=== PATIENT | male | born 1965 | race Caucasian/White ===

== ENCOUNTER 2019-03-14 05:49 | Day surgery (SDC) | payer OTHER ==
[2019-03-14] MEDS: BUPIVACAINE 0.5% (SDV) 30 ML INJ (07:40)
[2019-03-14] MEDS: LIDOCAINE 1% (MPF) 30 ML INJ (07:40)
[2019-03-14] MEDS ORDERED: PROPOFOL 20 ML ×3 (07:44→07:56)
[2019-03-14] MEDS ORDERED: FENTAnyl 50 MCG/ML VIAL (07:45)
[2019-03-14] MEDS ORDERED: LIDOCAINE 2% (SDV) 5 ML INJ (07:56)
[2019-03-14] MEDS ORDERED: CEFAZOLIN 1 GM INJ (07:56)
[2019-03-14] MEDS: POLYMYXIN/BACITRACIN 1L IRRIG (08:10)
[2019-03-14] MEDS: DEXAMETHASONE 4 MG/ML 1 ML INJ ×2 (08:11)
[2019-03-14] MEDS ORDERED: MEPERIDINE 25 MG INJ (08:51)
[2019-03-14] MEDS: MEPERIDINE 25 MG INJ IV (08:55)
[2019-03-14] MEDS: LACTATED RINGER'S 1,000 ML IV (08:55)
[2019-03-14] MEDS ORDERED: ALBUTEROL 0.083% (NEB) 2.5 MG/3 ML AMP HHN (09:00)
[2019-03-14] MEDS ORDERED: LABETALOL HCL 20MG INJ IV (09:00)
[2019-03-14] MEDS ORDERED: KETOROLAC 30 MG INJ IV (09:00)
[2019-03-14] MEDS ORDERED: DIPHENHYDRAMINE 50 MG INJ IV (09:00)
[2019-03-14] MEDS ORDERED: FENTAnyl 50 MCG/ML VIAL IV ×3 (09:00)
[2019-03-14] MEDS ORDERED: EPHEDrine 25 MG/5 ML SYG IV (09:00)
[2019-03-14] MEDS ORDERED: hydrALAzine 20 MG INJ IV (09:00)
[2019-03-14] MEDS ORDERED: HYDROmorphONE 1 MG/5 ML IV SYRINGE IV (09:00)
[2019-03-14] MEDS ORDERED: OXYCODONE/ACETAMINOPHEN (5/325) TAB PO ×2 (09:00)
[2019-03-14] MEDS: HYDROmorphONE 1 MG/5 ML IV SYRINGE IV ×2 (09:01→09:11)
[2019-03-14] MEDS: ONDANSETRON 4 MG INJ IV (09:01)
== END 2019-03-14 10:15 | disposition home or self-care (01) ==
LOC: SDS 05:49
DX: M21.612 Bunion of left foot (principal); M20.41 Other hammer toe(s) (acquired), right foot
CPT/HCPCS: 28285; 88304; 88311